=== PATIENT | male | born 1980 | race Hispanic/Latino ===

== ENCOUNTER 2020-02-27 21:23 | Emergency (ER) | payer OTHER ==
[2020-02-27] MEDS ORDERED: KETOROLAC TROMETHAMINE 30MG/ML ONE (22:11)
[2020-02-27] MEDS ORDERED: HYDROCODONE/ACETAMINOPHEN 10/325 MG TAB ONE (22:11)
== END 2020-02-27 23:14 | disposition home or self-care (01) ==
LOC: EDH 21:23
DX: M23.91 Unspecified internal derangement of right knee (principal); Z90.49 Acquired absence of other specified parts of digestive tract; Z98.890 Other specified postprocedural states
CPT/HCPCS: 29505; 73562; 96372; 99283; J1885; 29105